=== PATIENT | female | born 1950 | race Caucasian/White ===

== ENCOUNTER 2022-11-17 09:01 | Outpatient (CLI) | payer MEDICARE, SELFPAY ==
--- NOTE | ~2022-11-17 | DEXA_ITS ---
Bone Density Report Name: JANET HERRERA Age: 72 Sex: Female Ethnicity: White Date of : 1950 Indication: postmenopausal; screening for osteoporosis; height loss; prior fracture; hysterectomy; Referring Provider: BLAS, LANEY Kendrick Study: Bone densitometry was performed. Exam Date: November 17, 2022 Accession number: [id number] Bone Density: Region BMD T-score Z-score Classification AP Spine(L1-L4) 0.922 -1.1 1.1 Osteopenia Femoral Neck (Left) 0.643 -1.9 0.1 Osteopenia Total Hip (Left) 0.759 -1.5 0.1 Osteopenia Femoral Neck (Right) 0.638 -1.9 0.0 Osteopenia Total Hip (Right) 0.757 -1.5 0.1 Osteopenia Total Hip Mean 0.758 -1.5 0.1 Osteopenia World Health Organization criteria for BMD impression classify patients as: Normal (T-score at or above -1.0), Osteopenia (T-score between -1.0 and -2.5), or Osteoporosis (T-score at or below -2.5). 10-year Fracture Risk: FRAX not reported because: Prior hip or vertebral fracture Clinical Information Provided by Patient: Have had a previous hip or vertebral fracture Has had a low trauma fracture Has used the following medications: Vitamin D, Calcium Has the following medical conditions: Hysterectomy Patient maximum height was 62 Menopause Age: 34 No regular weight bearing exercise Does not regularly consume dairy products Onset of menses at age 13 Number of children 3 Impression: The patient has low bone mass, based on the Left Femoral Neck T-score. The patient has risk factors, including: previous fracture. Discussion: INCREASED RISK OF FRACTURE DUE TO HISTORY OF FRACTURE. The patient's previous fracture puts the patient at high risk of a future fracture. In untreated patients, the risk of osteoporotic fracture increases approximately two-fold for each 1.0 SD decrease in T-score. Low bone density is not the only risk factor for fracture; also consider factors such as patient's age, frailty or poor health, risk of falling, risk of injury, previous osteoporotic fracture, family history of osteoporosis, cigarette smoking, low body weight, etc. Not everyone with a low trauma fracture has osteoporosis; osteomalacia and other metabolic bone disorders should also be considered. Patients who have osteoporosis should be evaluated for specific diseases and conditions (secondary causes) that may cause or contribute to bone loss and fracture risk. National Osteoporosis Foundation (NOF) recommends pharmacologic intervention for patients with a prior hip or vertebral fracture regardless of BMD T-score. The patient should follow a healthful lifestyle (good nutrition with adequate calcium and vitamin D, and appropriate weight-bearing exercise). Follow-Up: Consider a repeat BMD and Vertebral Fracture Assessment (VFA) exam in 2 years or sooner if medically necessar
== END 2022-11-17 09:02 | disposition home or self-care (01) ==
PROVIDERS: PCP Pediatrics; Visit Provider Nurse Practitioner Family
DX: S32.010D Wedge compression fracture of first lumbar vertebra, subsequent encounter for fracture with routine healing (principal); I49.8 Other specified cardiac arrhythmias; X58.XXXD Exposure to other specified factors, subsequent encounter; M85.88 Other specified disorders of bone density and structure, other site; M85.852 Other specified disorders of bone density and structure, left thigh; M85.851 Other specified disorders of bone density and structure, right thigh
CPT/HCPCS: 77080

== ENCOUNTER 2022-11-19 07:57 | Outpatient (CLI) | payer MEDICARE, SELFPAY ==
--- NOTE | ~2022-11-19 | MR_ITS ---
EXAMINATION: MR lumbar spine wo con DATE: 11/19/2022 08:51 INDICATION: Low back pain. L1 compression fracture. TECHNIQUE: Magnetic resonance imaging (MRI) of the lumbar spine was performed without intravenous con trast. Sequences included sagittal T2-weighted FSE, sagittal T2-weighted FS FSE, sagittal T1-weighted FSE, and axial T2-weighted FSE. COMPARISON: None FINDINGS: There is 5 degrees levocurvature of lumbar spine. There is 3 mm anterolisthesis of L5 on S1 . There is a burst fracture of L1 superior endplate with 3/5 loss of height, retropulsion of bone 3 m m into central spinal canal, and edema-like marrow signal intensity. There is severely decreased disc height at T11-T12 and mildly decreased disc height at L2-L3, L4-L5, and L5-S1. The distal spinal cor d signal intensity is normal. The conus medullaris is at L1-L2. The following disc levels are specifi tayo discussed: T12-L1: The disc is bulging. There is mild bilateral facet joint osteoarthritis. There is mild bilate ral neural foraminal stenosis. There is mild central canal stenosis. L1-L2: The disc is bulging. There is mild bilateral facet joint osteoarthritis. There is no neural fo raminal stenosis. There is mild central canal stenosis. L2-L3: The disc is bulging. There is mild bilateral facet joint osteoarthritis. There is mild bilater al neural foraminal stenosis. There is mild central canal stenosis. L3-L4: The disc is bulging. There is moderate right and mild left facet joint osteoarthritis. There i s mild bilateral neural foraminal stenosis. There is mild central canal stenosis. L4-L5: The disc is bulging and has an annular fissure. There is severe bilateral facet joint osteoart hritis. There is mild bilateral neural foraminal stenosis. There is mild central canal stenosis. L5-S1: The disc is bulging and has an annular fissure. There is severe bilateral facet joint osteoart hritis. There is mild bilateral neural foraminal stenosis. There is mild central canal stenosis. IMPRESSION: 1. L1 burst fracture, likely acute or subacute. 2. Mild lumbar spondylosis. Reviewed, dictated and finalized at location A.
== END 2022-11-19 07:58 | disposition home or self-care (01) ==
PROVIDERS: PCP Pediatrics; Visit Provider Nurse Practitioner Family
DX: S32.040D Wedge compression fracture of fourth lumbar vertebra, subsequent encounter for fracture with routine healing (principal); I49.8 Other specified cardiac arrhythmias; Z78.0 Asymptomatic menopausal state; M47.816 Spondylosis without myelopathy or radiculopathy, lumbar region; S32.011A Stable burst fracture of first lumbar vertebra, initial encounter for closed fracture; T14.90XA Injury, unspecified, initial encounter
CPT/HCPCS: 72148

== ENCOUNTER 2023-01-23 14:26 | Outpatient (CLI) | payer MEDICARE, SELFPAY ==
--- NOTE | ~2023-01-23 | XR_ITS ---
EXAMINATION: XR lumbar spine 2-3V DATE: 01/23/2023 15:04 INDICATION: Bilateral low back pain TECHNIQUE: Anteroposterior and lateral views of the lumbar spine, and cone-down lateral view of the l umbosacral junction were obtained. COMPARISON: 11/19/2022 FINDINGS: 4 mm anterolisthesis L5 on S1. There is mild focal kyphosis centered at L1 burst fracture with unchan ged 40% anterior vertebral body height loss. The fracture remains ununited with residual lucency exte nding along the fracture line underlying the superior endplate. No significant interval change in a f ew millimeter retropulsion. Remaining vertebral body heights are normal. Moderate disc height loss at T11-T12. Mild disc height loss at T9-T10, T10-T11, L2-L3 and L5-S1. Multiple ovoid densities project ing over the left lower quadrant and pelvis likely representing ingested pills. IMPRESSION: 1. Chronic L1 burst fracture with horizontal fracture plane extending across the cephalad aspect of v ertebral body appearing to remain at least partially ununited. 2. Mild lumbar spondylosis. Reviewed, dictated and finalized at location A. ISTRY TECHNOLOGIST IMPRESSION: 1. Chronic L1 burst fracture with horizontal fracture plane extending across th e cephalad aspect of vertebral body appearing to remain at least partially unun ited. 2. Mild lumbar spondylosis.
== END 2023-01-23 14:27 | disposition home or self-care (01) ==
PROVIDERS: PCP Pediatrics; Visit Provider Physician Assistant
DX: M47.896 Other spondylosis, lumbar region (principal); S32.011D Stable burst fracture of first lumbar vertebra, subsequent encounter for fracture with routine healing; X58.XXXD Exposure to other specified factors, subsequent encounter
CPT/HCPCS: 72100

== ENCOUNTER → 2023-02-09 09:52 | Outpatient (CLI) | payer MEDICARE, SELFPAY ==
--- NOTE | ~2023-02-09 | MR_ITS ---
EXAMINATION: MR lumbar spine wo con DATE: 02/09/2023 10:30 INDICATION: Low back pain. Compression fracture of L1. TECHNIQUE: Magnetic resonance imaging (MRI) of the lumbar spine was performed without intravenous con trast. Sequences included sagittal T2-weighted FSE, sagittal T2-weighted FS FSE, sagittal T1-weighted FSE, and axial T2-weighted FSE. COMPARISON: Lumbar spine MRI 11/19/2022 FINDINGS: There is 8 degrees levocurvature of lumbar spine. There is 3 mm anterolisthesis of L5 on S1 . There is a burst fracture of L1 superior endplate with 3/5 loss of height, retropulsion of bone 3 m m into central spinal canal, and edema-like marrow signal intensity. There is severely decreased disc height at T11-T12, mildly decreased disc height at L2-L3 and L4-L5, and moderately decreased disc he ight at L5-S1. The distal spinal cord signal intensity is normal. The conus medullaris is at L1-L2. T he following disc levels are specifically discussed: T12-L1: The disc is bulging. There is mild bilateral facet joint osteoarthritis. There is mild left n eural foraminal stenosis. There is mild central canal stenosis. L1-L2: There is a central protrusion. There is moderate bilateral facet joint osteoarthritis. There i s no neural foraminal stenosis. There is mild central canal stenosis. L2-L3: The disc is bulging. There is severe right and mild left facet joint osteoarthritis. There is mild bilateral neural foraminal stenosis. There is mild central canal stenosis. L3-L4: The disc is bulging. There is moderate bilateral facet joint osteoarthritis. There is mild sudhir ateral neural foraminal stenosis. There is mild central canal stenosis. L4-L5: The disc is bulging and has an annular fissure. There is severe bilateral facet joint osteoart hritis. There is mild bilateral neural foraminal stenosis. There is mild central canal stenosis. L5-S1: The disc is bulging and has an annular fissure. There is severe bilateral facet joint osteoart hritis. There is mild bilateral neural foraminal stenosis. There is mild central canal stenosis. IMPRESSION: 1. Subacute L1 burst fracture, stable from 11/19/2022. 2. Mild lumbar spondylosis. Reviewed, dictated and finalized at location A. TABLE II FARMWORKER
== END ==
PROVIDERS: PCP Anesthesiology Pain Medicine; Visit Provider Anesthesiology Pain Medicine
DX: S32.010D Wedge compression fracture of first lumbar vertebra, subsequent encounter for fracture with routine healing (principal); X58.XXXD Exposure to other specified factors, subsequent encounter
CPT/HCPCS: 72148